=== PATIENT | male | born 1965 | race Native Hawaiian/Other Pacific Islander ===

== ENCOUNTER 2018-01-28 10:24 | Outpatient (CLI) | payer OTHER ==
[~2018-01-28 10:24] MED LIST: ADIPEX-P37.5 M1; FISH OIL
== END 2018-01-28 22:55 | disposition home or self-care (01) ==
LOC: RAD 10:24
DX: I10 Essential (primary) hypertension (principal)

== ENCOUNTER 2021-10-18 10:00 | Outpatient (CLI) | payer OTHER | END 2021-10-18 20:19 | disposition home or self-care (01) | LOC: US 10:00 | PROVIDERS: ATTEND Nurse Practitioner Family | DX: M79.605 Pain in left leg (principal) ==

== ENCOUNTER 2021-11-19 09:43 | Inpatient (IN) | payer OTHER ==
[~2021-11-19] VITALS: Ht 188 cm; Wt 150.2 kg
[2021-11-19] MEDS ORDERED: COZAAR100 MG PO (12:42)
[2021-11-19] MEDS ORDERED: HYDR25TA60 PO (12:43)
[2021-11-19] MEDS ORDERED: PANTOPRAZOLE SO40 M1 PO (12:44)
[2021-11-19 14:00] LABS: PLATELET COUNT 164 K/uL (142-355)
[2021-11-19 14:45] LABS: POTASSIUM 3.6 mmol/L (3.6-5.2)
[2021-11-19 14:58] VITALS: BP 136/84; TEMP 99.7; Ht 188 cm; Wt 150.2 kg
[2021-11-19 16:00] VITALS: BP 139/80; TEMP 98.9
[2021-11-19 20:00] VITALS: BP 116/73; TEMP 98.4
[2021-11-20 00:07] VITALS: BP 132/92; TEMP 97.7
[2021-11-20 04:13] VITALS: BP 130/74; TEMP 98.1
[2021-11-20 08:00] VITALS: BP 132/78; TEMP 98.8
[2021-11-20 12:00] VITALS: BP 131/80; TEMP 97.8
[2021-11-20 16:00] VITALS: BP 146/84; TEMP 99.5
[2021-11-20 20:00] VITALS: BP 125/70; TEMP 94.4
[2021-11-21] VITALS: BP 131/82; TEMP 98.1
[2021-11-21 04:00] VITALS: BP 124/80; TEMP 97.9
[2021-11-21 08:00] VITALS: BP 144/89; TEMP 97.8
[2021-11-21 11:16] LABS: PLATELET COUNT 187 K/uL (142-355)
[2021-11-21 11:31] LABS: POTASSIUM 4.5 mmol/L (3.6-5.2)
[2021-11-21 12:00] VITALS: BP 136/83; TEMP 98.1
[2021-11-21 16:00] VITALS: BP 147/79; TEMP 97.9
[2021-11-21 20:00] VITALS: BP 124/71; TEMP 98.5
[2021-11-22] VITALS: BP 144/93; TEMP 98
[2021-11-22 04:00] VITALS: BP 162/98; TEMP 97.7
[2021-11-22 05:53] LABS: PLATELET COUNT 202 K/uL (142-355)
[2021-11-22 06:22] LABS: POTASSIUM 4.1 mmol/L (3.6-5.2)
[2021-11-22 08:00] VITALS: BP 158/96; TEMP 98
[2021-11-22 12:00] VITALS: BP 141/84; TEMP 97.9
[2021-11-22 16:00] VITALS: BP 141/84; TEMP 98.5
[2021-11-22 20:00] VITALS: BP 140/79; TEMP 97.6
[2021-11-23] VITALS: BP 126/86; TEMP 97.8
[2021-11-23 04:29] VITALS: BP 131/92; TEMP 98.4
[2021-11-23 08:00] VITALS: BP 175/103; TEMP 97.9
[2021-11-23 09:02] LABS: PLATELET COUNT 232 K/uL (142-355)
[2021-11-23 09:30] LABS: POTASSIUM 3.9 mmol/L (3.6-5.2)
[2021-11-23 12:00] VITALS: BP 164/97; TEMP 97.8
[2021-11-23 16:00] VITALS: BP 172/89; TEMP 98.1
[2021-11-23 20:27] VITALS: BP 150/89; TEMP 97.9
[2021-11-24 00:19] VITALS: BP 146/89; TEMP 96.8
[2021-11-24 04:00] VITALS: BP 145/87; TEMP 98.4
[2021-11-24 04:29] LABS: PLATELET COUNT 189 K/uL (142-355)
[2021-11-24 04:40] LABS: POTASSIUM 4.2 mmol/L (3.6-5.2)
[2021-11-24 08:00] VITALS: BP 152/85; TEMP 98
[2021-11-24 12:00] VITALS: BP 154/86; TEMP 98.8
[2021-11-24 15:47] VITALS: BP 152/94; TEMP 97.9
[2021-11-24 20:00] VITALS: BP 169/89; TEMP 99.2
[2021-11-25] VITALS: BP 141/80; TEMP 97.9
[2021-11-25 04:00] VITALS: BP 11/95; TEMP 97.8
[2021-11-25 06:56] LABS: PLATELET COUNT 203 K/uL (142-355)
[2021-11-25 07:11] LABS: POTASSIUM 4.2 mmol/L (3.6-5.2)
[2021-11-25 08:00] VITALS: BP 160/73; TEMP 97.8
[2021-11-25 12:00] VITALS: BP 166/95; TEMP 98.7
== END 2021-11-25 16:30 | disposition home or self-care (01) | DRG 177 ==
LOC: MED/SURG 09:43
PROVIDERS: ADMIT Family Medicine; ATTEND Family Medicine
DX: U07.1 COVID-19 (principal); J12.82 Pneumonia due to coronavirus disease 2019; R09.02 Hypoxemia; G47.39 Other sleep apnea; F41.8 Other specified anxiety disorders; I10 Essential (primary) hypertension; E87.8 Other disorders of electrolyte and fluid balance, not elsewhere classified; E88.81 Metabolic syndrome and other insulin resistance; E66.8 Other obesity; Z68.39 Body mass index [BMI] 39.0-39.9, adult; M62.81 Muscle weakness (generalized); Z74.1 Need for assistance with personal care; R53.81 Other malaise
CPT/HCPCS: 36415; 36600; 80053; 81000; 82728; 82805; 83735; 83880; 84100; 85007; 85027; 85379; 86140; 87040; 87502; 87635; 87651; 88108; 93005; 94667; 94668; 94760; 96365; 96366; 96372; 96375; J0248; J0456; J1650; J1885; J1940; J2270; J2920; J2930; U0003

== ENCOUNTER 2021-12-12 18:17 | Observation (INO) | payer OTHER ==
[~2021-12-12] VITALS: Ht 188 cm; Wt 142.5 kg
[~2021-12-12 18:17] MED LIST changes: +COZAAR100 MG PO; +HYDR25TA60 PO; +PANTOPRAZOLE SO40 M1 PO
[2021-12-12 19:31] LABS: PLATELET COUNT 187 K/uL (142-355)
[2021-12-12 19:52] LABS: PARTIAL THROMBOPLASTIN TIME 31.1 SECONDS (24.5-33.6)
[2021-12-12 20:02] LABS: POTASSIUM 4.4 mmol/L (3.6-5.2)
[2021-12-12 20:32] VITALS: BP 146/96; TEMP 98.4
[2021-12-13 00:18] VITALS: BP 135/75; TEMP 98.8
[2021-12-13 04:00] VITALS: BP 116/73; TEMP 97.7
[2021-12-13 08:00] VITALS: BP 126/86; TEMP 97.9
[2021-12-13 08:09] LABS: PLATELET COUNT 166 K/uL (142-355)
[2021-12-13 08:13] LABS: POTASSIUM 4.3 mmol/L (3.6-5.2)
[2021-12-13] MEDS ORDERED: ENTERIC COATED325 MG PO (08:18)
[2021-12-13 12:00] VITALS: BP 127/86; TEMP 98.1
--- NOTE | 2021-12-13 14:40 | NUR ---
PT LAYING HIGH FOWLERS IN BED. DENIES ANY CHEST PAIN/DISCOMFORT. LABS SENT TO PCP(ANAIS). OBTAINED AN ORDER FOR ECHO ON PT PER PCP AND WAS DONE TODAY. AWAITING RESULTS. IV SITE TO LFA INTACT WITH NO S/S OF INFILTRAITON NOTED. NAD NOTED. SATS=97% ON ROOM AIR. MEDS ADMINISTERED ORDERED. IVF OF NS AT 80ML/HR INFUSING ORDERED. CONTINUE TO MONITOR.
[2021-12-13 16:00] VITALS: BP 131/82; TEMP 98
[2021-12-13] MEDS ORDERED: COZAAR100 MG PO (18:43)
[2021-12-13] MEDS ORDERED: PANTOPRAZOLE 40MG TA PO (18:43)
[2021-12-13] MEDS ORDERED: ASPIRIN 325 MG PO (18:44)
== END 2021-12-13 19:40 | disposition home or self-care (01) ==
LOC: MED/SURG 18:17
PROVIDERS: ADMIT Family Medicine; ATTEND Family Medicine
DX: U09.9 Post COVID-19 condition, unspecified (principal); R07.89 Other chest pain
CPT/HCPCS: 36415; 80053; 82550; 82728; 83735; 84100; 84484; 85027; 85379; 85610; 85730; 86140; 87635; 93005; 94760; 99220; G0378; G0379; J1650; U0003

== ENCOUNTER 2021-12-26 08:16 | Outpatient (CLI) | payer OTHER ==
[~2021-12-26 08:16] MED LIST changes: +ASPIRIN 325 MG PO; +ENTERIC COATED325 MG PO; +PANTOPRAZOLE 40MG TA PO
== END 2021-12-26 18:51 | disposition home or self-care (01) ==
LOC: NM 08:16
PROVIDERS: ATTEND Family Medicine
DX: U09.9 Post COVID-19 condition, unspecified (principal); R07.89 Other chest pain
CPT/HCPCS: A9500